=== PATIENT | male | born 1990 | race Caucasian/White ===

== ENCOUNTER 2018-03-07 02:27 | Emergency (ER) | payer SELFPAY ==
[2018-03-07 02:28] VITALS: BP 138/104
--- NOTE | 2018-03-07 02:33 | ER Report ---
History and Physical Time Seen By MD: 02:30 HPI/ROS CHIEF COMPLAINT: [facility] clearance HISTORY OF PRESENT ILLNESS: 27-year-old male brought in by [employer] for detention clearance. Patient denies any medical complaints. Patient admits to alcohol ingestion. Patient denies any past medical history. REVIEW OF SYSTEMS: Respiratory: No cough, no dyspnea. Cardiovascular: No chest pain, no palpitations. Gastrointestinal: No vomiting, no abdominal pain. Musculoskeletal: No back pain. Allergies: Coded Allergies: No Known Drug Allergies (Unverified , 03/07/18) Reviewed Nurses Notes: Yes Old Medical Records Reviewed: Yes Constitutional Vital Sign - Last 24 Hours 03/07/18 02:28 Temp 98.7 Pulse 102 Resp 16 B/P (MAP) 138/104 Pulse Ox 95 O2 Delivery Room Air Physical Exam Vital signs stable, afebrile, pulse ox normal General Appearance: The patient is alert, has no immediate need for airway protection and no current signs of toxicity. Palpation of the head and neck reveals no tenderness or trauma HEENT: Pupils equal and round no injection. TMs normal, oropharynx without dental trauma Respiratory: Chest is non tender, lungs are clear to auscultation. No chest wall tenderness Cardiac: regular rate and rhythm Gastrointestinal: Abdomen is soft and non tender, no masses, bowel sounds normal. Musculoskeletal: Neck: Neck is supple and non tender. Extremities have full range of motion and are non tender. Skin: No rashes or lesions. DIFFERENTIAL DIAGNOSIS: After history and physical exam differential diagnosis was considered for alcohol intoxication, polysubstance abuse, detention clearance Medical Decision Making ED Course/Re-evaluation ED Course Patient was admitted to an examination room. H&P was done. The differential diagnosis was considered. On clinical examination. Patient is stable vital signs. He voices no complaints. There are no findings on clinical examination. Patient's medically cleared for detention admission. Decision to Disposition Date: Mar 07, 2018 Decision to Disposition Time: 02:30 Depart Departure Latest Vital Signs Vital Signs Date Time Temp Pulse Resp B/P (MAP) Pulse Ox O2 Delivery O2 Flow Rate FiO2 03/07/18 02:28 98.7 102 16 138/104 95 Room Air Impression: Primary Impression: Medical clearance for incarceration Additional Impression: Alcohol intoxication Condition: Improved Disposition: [facility] TO SKILLED NURSING/CORRECTIONAL F Patient Instructions: Alcohol Intoxication (DC) Additional Instructions: Medical cleared for detention admission Problem Qualifiers Additional Impression: Alcohol intoxication Complication of substance-induced condition: uncomplicated Qualified Codes: F10.920 - Alcohol use, unspecified with intoxication, uncomplicated MEHRDAD MONCADA DO Mar 07, 2018 02:33
== END 2018-03-07 02:38 ==
LOC: ER 02:36
DX: F10.920 Alcohol use, unspecified with intoxication, uncomplicated (principal)
CPT/HCPCS: 99281